=== PATIENT | female | born 1975 | race Caucasian/White ===

== ENCOUNTER 2024-01-18 20:28 | Emergency (ER) | payer SELFPAY ==
--- NOTE | ~2024-01-18 | CT_ITS ---
CT abdomen pelvis wo con Ordering provider: Phoebe López PA-C History: 48 years Female with . lower abd pain, hematuria . Comparison: None. Technique: CT abdomen and pelvis without IV and without oral contrast. Automated exposure control and iterative reconstruction technique were employed. The dose-length product was 391.23 mGy-cm. Findings: Bilateral breast implants. VISUALIZED LOWER CHEST: 6 mm nodule is seen in the middle lobe. Follow-up CT in 6 months is advised. Dependent atelectatic changes. UPPER ABDOMINAL ORGANS: Liver: Normal. Gallbladder: Normal. Spleen: Normal. Stomach/duodenum: Normal. Pancreas: Normal. Adrenals: Normal. Kidneys: Normal. PELVIC ORGANS: The bladder shows slightly thickened wall. Uterus: Normal. Retroverted. Left ovarian c yst measuring 2.8 cm. BOWEL AND MESENTERY: Colon: No evidence of diverticulitis. Fecal material is seen in the right side of the colon. Area of Slight thickening of the wall in the ascending colon is noted. Follow-up is advised. Normal appendix. Small Bowel: Normal. No obstruction. Peritoneum/mesentery: No free air or free fluid. No mesenteric lymphadenopathy. RETROPERITONEUM: Normal aorta. No retroperitoneal lymphadenopathy. MUSCULOSKELETAL: Superficial soft tissues: The superficial soft tissues are normal. Bones: Normal 0spine. IMPRESSION: 1. No evidence of appendicitis, diverticulitis or intestinal obstruction. 2. Area of wall thickening seen in the ascending colon. Further evaluation and follow-up advised. 3. Constipation. 4. Left ovarian cyst. 5. Nodule in the middle lobe. Follow-up CT scan in 6 months is advised. Reviewed, dictated and finalized at location A.
[2024-01-18 20:31] VITALS: BP 167/94; PULSE 63; RESP 18; TEMP 36.6; O2SAT 98
[2024-01-18 21:02] LABS: Add Urine Microscopic? YES; Appearance Urine Cloudy (Clear); Bacteria Urine 3+ /hpf; Bilirubin Urine Negative (Negative); Blood Urine 2+ (Negative); Color Urine Yellow (Yellow); Glucose Urine UA Negative (Negative); Ketones Urine Negative (Negative); Leukocyte Esterase Ur Trace LEU/UL (Negative); Nitrate Urine Negative (Negative); Non Pathogenic Casts 0-2; Protein Urine Negative (Negative); RBC Urine 0-2 /hpf (0-2); Specific Grav Ur 1.011 (1.001-1.035); Squamous Epithelial Cell Urine Moderate /hpf (Few); Urobilinogen Urine 0.2 mg/dL (<2.0); WBC Urine 21-50 /hpf (0-3); pH Urine 5.5 (5.0-9.0)
--- NOTE | 2024-01-18 22:37 | ED_ITS ---
HPI - Female Genitourinary General Chief complaint: Urogenital-Female Stated complaint: dysuria Time Seen by Provider: 01/18/24 22:13 Source: patient Mode of arrival: ambulatory Limitations: no limitations History of Present Illness HPI Narrative: Patient is a 48-year-old female who presents the ED with report of blood in her urine and concern for STDs. Patient reports over the last 7-8 days, she has been having vaginal irritation, intermittent itching, malodorous vaginal discharge, pink tinge to her urine, intermittent lower abdominal cramping, intermittent lower back pain. She reports recent urinary tract infection states the symptoms feel similar. Denies significant dysuria or frequency. She is also concerned for a yeast infection and sexually transmitted diseases. She notes she was recently treated for gonorrhea and was sexually active again 3 weeks ago with a different partner. She would like to be tested for STDs. Denies known fever, nausea, vomiting, diarrhea, history of kidney stones. Related Data Allergies Allergy/AdvReac Type Severity Reaction Status Date / Time No Known Allergies Allergy Verified 01/18/24 20:36 Review of Systems Review of Systems: All systems reviewed & are unremarkable except as noted in HPI. All systems reviewed & are unremarkable except as noted in HPI and below Exam Narrative: GENERAL: Well appearing, well-nourished, non-toxic, in no acute distress. HEAD: Normocephalic, atraumatic. RESPIRATORY: Airway patent, respirations nonlabored. Clear to auscultation bilaterally, no rales, rhonchi, wheezing. CARDIOVASCULAR: Regular rate and rhythm without murmurs, rubs, or gallops. ABDOMINAL: Soft, minimal tenderness throughout lower abdomen. No significant focal tenderness. Nondistended. Normoactive BS. MUSCULOSKELETAL: Moves all extremities. No gross deformities. SKIN: Warm, dry, normal color. NEURO: A&O X3. Speech clear. Cranial nerves II-XII grossly intact. No ataxic movements. PSYCHIATRIC: Appropriate mood and affect. Normal interaction. Course Vital Signs Vital signs: Vital Signs Temperature 97.8 F 01/18/24 20:31 Pulse Rate 63 01/18/24 20:31 Respiratory Rate 18 01/18/24 20:31 Blood Pressure 167/94 H 01/18/24 20:31 Pulse Oximetry 98 01/18/24 20:31 Oxygen Delivery Room Air 01/18/24 20:31 Temperature 97.8 F 01/18/24 20:31 Pulse Rate 84 01/19/24 00:33 Respiratory Rate 15 01/19/24 00:33 Blood Pressure 148/70 H 01/19/24 00:33 Pulse Oximetry 100 01/19/24 00:33 Oxygen Delivery Room Air 01/18/24 20:31 MDM - Female Genitourinary MDM Narrative Medical decision making narrative: Patient presented to ED with urinary complaints, vaginal odor, concern for yeast infection and STDs. Reports recent gonorrhea and UTI. Was treated with antibiotics and completed these courses. Recently sexually active again w/o protection. Vital signs are stable. Patient is in no acute distress. No significant tenderness throughout abdomen or signs of surgical abdomen. Urine sample here does appear acutely infected. Sent for culture. Will treat. Keflex given in the ED. Gonorrhea, Trichomonas, chlamydia testing were negative today. CT scan of abdomen/pelvis was obtained and fairly unremarkable. Did show constipation which patient was aware of and has history of. No obstruction. It also showed left-sided ovarian cyst. I discussed this with patient. She does not have any significant focal tenderness on exam throughout her left lower quadrant. No signs of surgical abdomen on repeat exams. She denies significant pain throughout her left lower quadrant. I have very low suspicion for torsion at this time. I discussed ability to obtain ultrasound today, however patient declined. She states she will follow-up with OBGYN for this when insurance is fully approved. She does not want any further workup or blood work. States she is ready to go home. She is very concerned about the odor and for a yeast infection. Diflucan given in the ED. Since STD testing was negative, will treat prophylactically for bacterial vaginosis picture given new change in discharge and order. Patient advised to follow closely with language translator. Given strict return precautions. She is in agreement with plan and feels comfortable going home. Discharged in stable condition. Medical Records Attestation: I reviewed the patient's medical records. Lab Data Attestation: I reviewed the patient's lab results. Labs: Lab Results 01/18/24 Range/Units 20:46 Urine Color Yellow (Yellow) Urine Appearance Cloudy H (Clear) Urine pH 5.5 (5.0-9.0) Ur Specific [place] 1.011 (1.001-1.035) Urine Protein Negative (Negative) mg/dL Urine Glucose (UA) Negative (Negative) mg/dL Urine Ketones Negative (Negative) mg/dL Ur Blood (Man) 2+ H (Negative) Urine Nitrate Negative (Negative) Urine Bilirubin Negative (Negative) Urine Urobilinogen 0.2 (<2.0) mg/dL Leukocyte Esterase Rfl Trace H (Negative) MAC/UL Urine RBC 0-2 (0-2) /hpf Urine WBC 21-50 H (0-3) /hpf Ur Squamous Epith Cells Moderate (Few) /hpf Urine Bacteria 3+ H /hpf Urine Casts 0-2 C. trachomatis (PCR) Not detected (NOT DETECTE) N. gonorrhoeae (PCR) Not detected (NOT DETECTE) T. vaginalis (PCR) Not detected (NOT DETECTE) Imaging Data Attestation: I personally reviewed and interpreted this imaging study as follows: Radiologist's impression: ITS Impressions Abdomen/Pelvis CT 01/18/24 22:56 IMPRESSION: 1. No evidence of appendicitis, diverticulitis or intestinal obstruction. 2. Area of wall thickening seen in the ascending colon. Further evaluation and follow-up advised. 3. Constipation. 4. Left ovarian cyst. 5. Nodule in the middle lobe. Follow-up CT scan in 6 months is advised. Discharge Plan Discharge Clinical Impression: Vaginal odor UTI (urinary tract infection) Qualifiers: Urinary tract infection type: acute cystitis Hematuria presence: without hematuria Qualified Code(s): N30.00 - Acute cystitis without hematuria Ovarian cyst Qualifiers: Laterality: left Qualified Code(s): N83.202 - Unspecified ovarian cyst, left side Patient Disposition: Home, Self-Care Condition: Stable Instructions: Antibiotic Form, Bacterial Vaginosis (ED), Safe Sex Practices (ED), Urinary Tract Infection in Women (ED) Additional Instructions: Take both antibiotics as prescribed for urinary tract infection and bacterial vaginosis. Avoid further intercourse until completion of antibiotics. Your testing for gonorrhea, chlamydia, Trichomonas was negative. Your imaging here did show evidence of a left-sided ovarian cyst. Follow-up with OBGYN for further evaluation of this. Return to the ED if you experience worsening or severe pain, focal pain in your left lower abdomen, unable to keep down food or drink, persistent fevers, difficulty urinating, or any other symptoms of concern. Prescriptions: New metronidazole 500 mg tablet 500 mg PO BID 7 Days Qty: 14 0RF cephalexin 500 mg capsule 500 mg PO Q6H 7 Days Qty: 28 0RF Follow-up/Referrals: Angelica Rios MD [Physician] - (PRIMARY CARE) Juarez Barksdale MD [Physician] - (OBGYN) UNKNOWN,DOCTOR [Primary Care Provider] - Time of Disposition: 00:20
[2024-01-18 23:17] LABS: Trichomonas Vag PCR NOT DETECTED (NOT DETECTE)
[2024-01-18 23:40] LABS: Chlamydia trachomatis NOT DETECTED (NOT DETECTE); Neisseria gonorrhoeae PCR NOT DETECTED (NOT DETECTE)
[2024-01-19] MEDS: CEPHALEXIN 500 MG CAPSULE PO (00:30)
[2024-01-19] MEDS: FLUCONAZOLE 150 MG TABLET PO (00:31)
[2024-01-19] MEDS: metroNIDAZOLE 500 MG TABLET PO (00:31)
[2024-01-19 00:33] VITALS: BP 148/70; PULSE 84; RESP 15; O2SAT 100
== END 2024-01-19 00:34 | disposition home or self-care (01) ==
PROVIDERS: Emergency Medicine; Emergency Provider Physician Assistant
DX: N30.00 Acute cystitis without hematuria (principal); N89.8 Other specified noninflammatory disorders of vagina; N83.202 Unspecified ovarian cyst, left side
CPT/HCPCS: 74176; 81001; 87086; 87491; 87591; 87661; 99284; A9270